=== PATIENT | female | born 1970 | race Two or more races ===

== ENCOUNTER 2020-01-11 20:51 | Inpatient (IN) | payer MEDICAID ==
[~2020-01-11] VITALS: Ht 142.2 cm; Wt 71.4 kg
--- NOTE | 2020-01-11 21:10 | NUR ---
ASSUMED CARE OF PT AT THIS TIME FROM [facility]. PT REQUESTS RESTROOM, AMBULATED WITH STEADY GAIT AND ASSISTANCE FOR CLEAN CATCH UA AND BM. CLEAN CATCH UA COLLECTED AND SENT TO LAB. PT PASSED MODERATE AMOUNT OF STOOL WITH BRIGHT RED BLOOD NOTED, DR. SARKAR IN RESTROOM TO ASSESS. PT ASSISTED TO BED. MD AT BEDSIDE FOR EVALUATION. ADULT SON TRANSLATING PER PT REQUEST. PER SON "SHE HAS BEEN HAVING BLOOD IN HER STOOLS FOR A FEW MONTHS NOW OR WHEN SHE WIPED, DOCTOR SAID SHE HAS HEMORRHOIDS BUT THEN TODAY SHE HAS PASSED 5 TIMES A LOT OF BLOOD IN THE TOILET." DENIES DIZZINESS, CP, SOB, ABD PAIN, RECTAL PAIN, N/V/D. ASSESSMENT COMPLETED. CONT PULSE OX,BP, CARDIAC MONITORS APPLIED. VSS. CALL LIGHT IN REACH. FALL PRECAUTIONS IN PLACE. SON AT BEDSIDE. A&XO4.
[2020-01-11 21:35] LABS: BASOPHILS # (AUTO) 0.06 x10^3/uL (0-0.1); BASOPHILS % (AUTO) 1 % (0-1); EOSINOPHILS # (AUTO) 0.27 x10^3/uL (0-0.4); EOSINOPHILS % (AUTO) 4 % (1-7); LYMPHOCYTES # (AUTO) 1.13 x10^3/uL (1-3.4); LYMPHOCYTES % (AUTO) 17 % (22-44); MD NO; MEAN CORPUSCULAR HEMOGLOBIN 25.3 pg (27.0-34.8); MEAN CORPUSCULAR HGB CONC 30.8 g/dL (32.4-35.8); MEAN CORPUSCULAR VOLUME 82.3 fL (80-100); MEAN PLATELET VOLUME 9.8 fL (7.4-10.4); MONOCYTES # (AUTO) 0.63 x10^3/uL (0.2-0.8); MONOCYTES % (AUTO) 10 % (2-9); NEUTROPHILS # (AUTO) 4.45 x10^3/uL (1.8-6.8); NEUTROPHILS % (AUTO) 68 % (42-75); PLATELET COUNT 248 x10^3/uL (130-400); RED BLOOD COUNT 4.02 x10^6/uL (3.82-5.3)
--- NOTE | 2020-01-11 21:35 | NUR ---
US AT BEDSIDE.
--- NOTE | 2020-01-11 21:40 | NUR ---
VERONICA MEEHAN AT BEDSIDE TO PLACE 2ND PIV PER DR. SARKAR
[2020-01-11 21:44] LABS: MICROSCOPIC AUTO
[2020-01-11] MEDS ORDERED: SODI650T PO (21:44)
[2020-01-11] MEDS ORDERED: FEBU40TA PO (21:44)
[2020-01-11] MEDS ORDERED: FURO80TA3 PO (21:44)
[2020-01-11] MEDS ORDERED: [UNRECOGNIZED DRUG - OTHER] PO (21:44)
[2020-01-11] MEDS ORDERED: CARV3.122 PO (21:44)
[2020-01-11] MEDS ORDERED: OMEP10CA5 PO (21:44)
[2020-01-11] MEDS ORDERED: [UNRECOGNIZED DRUG - CODE] (21:44)
[2020-01-11 21:45] LABS: INTERNATIONAL NORMALIZED RATIO 1.24 (0.93-1.1); PROTHROMBIN TIME 13.2 Seconds (9.6-11.5)
[2020-01-11 21:46] LABS: ALANINE AMINOTRANSFERASE 16 U/L (12-78); ALBUMIN 2.8 g/dL (3.4-5.0); ANION GAP 10 mmol/L (5-15); CHLORIDE 107 mmol/L (98-107); CREATININE 7.11 mg/dL (0.55-1.02)
[2020-01-11 21:48] LABS: ALKALINE PHOSPHATASE 114 U/L (45-117); BILIRUBIN,TOTAL 0.4 mg/dL (0.2-1.0); TOTAL PROTEIN 7.2 g/dL (6.4-8.2)
--- NOTE | 2020-01-11 22:00 | NUR ---
US REMAINS AT BEDSIDE
--- NOTE | 2020-01-11 22:10 | NUR ---
PORTFOLIO SPECIALIST AT BEDSIDE FOR EKG
--- NOTE | 2020-01-11 22:15 | NUR ---
DISCUSSED LABS WITH DR. SARKAR, NO NEW ORDERS RECEIVED AT THIS TIME.
--- NOTE | 2020-01-11 22:43 | NUR ---
PT AMBULATORY TO RESTROOM WITH STEADY GAIT FOR BM. RESTING IN POSITION OF COMFORT. CT CALLED AND NOTIFIED PT READY FOR EXAM. VSS. CALL LIGHT IN REACH. FALL PRECAUTIONS IN PLACE.
--- NOTE | 2020-01-11 22:45 | NUR ---
PT TO CT
--- NOTE | 2020-01-11 22:57 | NUR ---
PT BACK FROM CT, NAD NOTED. SON REMAINS AT BEDSIDE. VSS. SR ON MONITOR. CALL LIGHT IN REACH. FALL PRECAUTIONS IN PLACE. DENIES ANY PAIN
--- NOTE | 2020-01-11 23:10 | NUR ---
PT AMBULATED TO RESTROOM WITH STEADY GAIT AND BACK TO BED, CONTINUES TO PASS BLOODY STOOLS, DISCUSSED WITH DR. SARKAR, AWARE. NO NEW ORDERS RECEIVED. AWAITING RECHECK. RESTING COMFORTABLY. VSS. SR ON MONITOR. DENIES ANY PAIN. FALL PRECAUTIONS IN PLACE. CALL LIGHT IN REACH
--- NOTE | 2020-01-11 23:19 | NUR ---
DR. SARKAR AT BEDSIDE FOR RECHECK, DISCUSSING POC.
[2020-01-11] MEDS: PANTOPRAZOLE 80 MG in SODIUM CHLORIDE 0.9% 100 ML IV SCH (23:30)
[2020-01-11] MEDS ORDERED: PANTOPRAZOLE 80 MG in SODIUM CHLORIDE 0.9% 50 ML IV ONE (23:30)
--- NOTE | 2020-01-11 23:32 | NUR ---
DR. SARKAR REMAINS AT BEDSIDE DISCUSSING POC WITH PT AND PT SON
--- NOTE | 2020-01-11 23:38 | NUR ---
PROTONIX REQUESTED FROM PHARMACY
--- NOTE | 2020-01-11 23:48 | NUR ---
BEDSIDE REPORT AND CARE TO [facility] RN'S AT THIS TIME. ADMITTING PROVIDER AT BEDSIDE FOR EVALUATION
[2020-01-12] MEDS ORDERED: ACETAMINOPHEN 325 MG TABLET PO PRN
[2020-01-12] MEDS ORDERED: ONDANSETRON 2MG/ML, 2ML IVPush PRN
[2020-01-12] MEDS ORDERED: SODIUM CHLORIDE 0.45% 1,000 ML IV SCH
--- NOTE | 2020-01-12 00:01 | NUR ---
RECEIVED REPORT FROM SHEFALI GEE. ADMITTING MD TO BEDSIDE. PT SITTING IN BED, SON AT BEDSIDE. SON TO TRANSLATE, CONFIRMED WITH PT THAT SHE PREFERED SON OVER TRANSLATION SERVICES. VSS, NO SIGNS OF DISTRESS, RESPIRATIONS EVEN AND UNLABORED. BP AND O2 MONITOR IN PLACE. PT UPDATED ON POC.
[2020-01-12 00:21] LABS: CHLORIDE,URINE RANDOM 31 mmol/L; POTASSIUM,URINE RANDOM 8 mmol/L; SODIUM,URINE RANDOM 47 mmol/L
[2020-01-12] MEDS: PANTOPRAZOLE 80 MG in SODIUM CHLORIDE 0.9% 100 ML IV SCH ×4 (00:32→22:37)
--- NOTE | 2020-01-12 00:41 | NUR ---
THIS RN AND SHEFALI GARY BOTH AT BEDSIDE TO SPEAK WITH SON AND PT ABOUT REASON WHY PT DOES NOT WANT TO STAY IN THE HOSPITAL WITHOUT HER SON. ANXIETIES ADDRESSED, LANGUAGE BARRIER ADDRESSED. SON AND PT EDUCATED ABOUT TRANSLATION SERVICES AND THE KIND OF CARE TO EXPECT WHILE ON THE FLOOR, INCLUDING BUT NOT LIMITED TO HOW THE PT WOULD REQUEST TO GO TO THE BATHROOM. PT AND SON EDUCATED THAT IF PT WERE TO LEAVE IT WOULD BE AMA. PT EDUCATED ON RISKS ASSOCIATED WITH THIS. PT AND SON LEFT ALONE TO DISCUSS PLAN.
--- NOTE | 2020-01-12 00:48 | NUR ---
JOSE GRIFFIN(ADMITTING) MADE AWARE OF PT. REQUEST TO LEAVE AMA IF SON IS NOT ABLE TO STAY. JAYLIN ZIMMERMAN CALLED AND ALSO MADE AWARE OF SITUATION. ATTEMPTING TO COME UP WITH PLAN PT. NEEDS MEDICAL TREATMENT. PT. AND SON MADE AWARE OF RISKS OF LEAVING AMA AND CONTINUE TO REPORT THAT IF SON CAN NOT STAY PT. WILL CHOOSE TO LEAVE AMA REGUARDLESS OF RISKS. AWAITING TO HEAR BACK FROM JAYLIN DUPONT ON SITUATION.
--- NOTE | 2020-01-12 01:08 | NUR ---
JOSE GRIFFIN BACK IN TO ROOM TO FURTHER DISCUSS RISKS OF LEAVING AMA UP TO AND INCLUDING . AT THIS TIME FLOOR RN'S WITH SAME LANGUAGE DOWN TO FURTHER SPEAK WITH PT. AND SON IN REGARDS TO IMPORTANCE OF STAYING IN HOSPITAL FOR TREATMENT. HOUSE SUP ALSO DOWN TO SPEAK WITH PT. AND SON.
--- NOTE | 2020-01-12 01:29 | NUR ---
LATE ENTRY FOR 0105: NURSE WHO SPEAKS PROMIES TO BEDSIDE TO TALK WITH PT. PT HAS DECIDED TO STAY.
[2020-01-12] MEDS ORDERED: CARVEDILOL 3.125 MG TABLET ONE (01:50)
[2020-01-12] MEDS ORDERED: FUROSEMIDE 80 MG TABLET ONE (01:51)
[2020-01-12] MEDS ORDERED: SODIUM BICARBONATE 650 MG TABLET ONE (01:51)
[2020-01-12] MEDS: SODIUM BICARBONATE 650 MG TABLET PO SCH ×3 (01:54→20:56)
[2020-01-12] MEDS: CARVEDILOL 3.125 MG TABLET PO SCH ×3 (01:55→20:56)
[2020-01-12] MEDS: FUROSEMIDE 80 MG TABLET PO SCH ×5 (01:55→20:59)
[2020-01-12] MEDS: SODIUM CHLORIDE FLUSH 10ML SYR IVF SCH ×3 (01:55→21:00)
[2020-01-12 01:58] VITALS: BP 110/69
[2020-01-12 04:04] LABS: MEAN CORPUSCULAR HEMOGLOBIN 25.5 pg (27.0-34.8); MEAN CORPUSCULAR HGB CONC 31.1 g/dL (32.4-35.8); MEAN CORPUSCULAR VOLUME 81.9 fL (80-100); MEAN PLATELET VOLUME 9.6 fL (7.4-10.4); PLATELET COUNT 196 x10^3/uL (130-400); RED BLOOD COUNT 3.27 x10^6/uL (3.82-5.3); RED CELL DISTRIBUTION WIDTH 16.9 % (9.6-15.2)
[2020-01-12 04:19] LABS: ANION GAP 11 mmol/L (5-15); CALCIUM 7.8 mg/dL (8.5-10.1); CHLORIDE 112 mmol/L (98-107); CREATININE 6.93 mg/dL (0.55-1.02)
[2020-01-12 04:42] LABS: BASOPHILS # (AUTO) 0.08 x10^3/uL (0-0.1); BASOPHILS % (AUTO) 1 % (0-1); EOSINOPHILS # (AUTO) 0.12 x10^3/uL (0-0.4); EOSINOPHILS % (AUTO) 2 % (1-7); LYMPHOCYTES # (AUTO) 1.16 x10^3/uL (1-3.4); LYMPHOCYTES % (AUTO) 20 % (22-44); MD SCAN; MONOCYTES # (AUTO) 0.43 x10^3/uL (0.2-0.8); MONOCYTES % (AUTO) 7 % (2-9); NEUTROPHILS # (AUTO) 3.99 x10^3/uL (1.8-6.8); NEUTROPHILS % (AUTO) 69 % (42-75)
[2020-01-12 06:56] VITALS: BP 108/71
[2020-01-12] MEDS: CYANOCOBALAMIN 1,000 MCG TABLET PO SCH (10:54)
[2020-01-12 10:55] VITALS: BP 109/69
[2020-01-12] MEDS: LEVOTHYROXINE 25 MCG TABLET PO SCH (10:55)
[2020-01-12 13:38] VITALS: BP 110/69
[2020-01-12] MEDS ORDERED: GOLYTELY 4,000ML ORAL.SOL PO ONE (18:00)
[2020-01-12 20:53] VITALS: BP 104/66
[2020-01-12] MEDS: MOVIPREP POWDER 1 PREP KIT PO SCH (20:57)
[2020-01-13 00:11] VITALS: BP 105/66
[2020-01-13] MEDS: MOVIPREP POWDER 1 PREP KIT PO SCH (06:13)
[2020-01-13 08:30] VITALS: BP 113/72
[2020-01-13] MEDS: LEVOTHYROXINE 25 MCG TABLET PO SCH (08:35)
[2020-01-13] MEDS: SODIUM BICARBONATE 650 MG TABLET PO SCH ×2 (08:35→20:57)
[2020-01-13] MEDS: FUROSEMIDE 80 MG TABLET PO SCH ×4 (08:36→21:02)
[2020-01-13] MEDS: CYANOCOBALAMIN 1,000 MCG TABLET PO SCH (08:36)
[2020-01-13] MEDS: SODIUM CHLORIDE FLUSH 10ML SYR IVF SCH ×3 (08:42→21:00)
[2020-01-13] MEDS: CARVEDILOL 3.125 MG TABLET PO SCH ×2 (08:42→20:57)
[2020-01-13] MEDS: PANTOPRAZOLE 80 MG in SODIUM CHLORIDE 0.9% 100 ML IV SCH (09:59)
[2020-01-13 10:02] LABS: BASOPHILS # (AUTO) 0.02 x10^3/uL (0-0.1); BASOPHILS % (AUTO) 1 % (0-1); EOSINOPHILS # (AUTO) 0.18 x10^3/uL (0-0.4); EOSINOPHILS % (AUTO) 4 % (1-7); LYMPHOCYTES % (AUTO) 18 % (22-44); MD NO; MEAN CORPUSCULAR HEMOGLOBIN 25.4 pg (27.0-34.8); MEAN CORPUSCULAR HGB CONC 30.3 g/dL (32.4-35.8); MEAN CORPUSCULAR VOLUME 83.7 fL (80-100); MEAN PLATELET VOLUME 9.3 fL (7.4-10.4); MONOCYTES # (AUTO) 0.29 x10^3/uL (0.2-0.8); MONOCYTES % (AUTO) 7 % (2-9); NEUTROPHILS # (AUTO) 3.12 x10^3/uL (1.8-6.8); NEUTROPHILS % (AUTO) 71 % (42-75); PLATELET COUNT 209 x10^3/uL (130-400); RED BLOOD COUNT 3.48 x10^6/uL (3.82-5.3); RED CELL DISTRIBUTION WIDTH 16.7 % (9.6-15.2)
[2020-01-13 10:04] LABS: ANION GAP 15 mmol/L (5-15); CALCIUM 8.3 mg/dL (8.5-10.1); CHLORIDE 116 mmol/L (98-107); CREATININE 7.34 mg/dL (0.55-1.02)
[2020-01-13] MEDS ORDERED: CHLORHEXIDINE 15 ML UDC ONE (11:44)
[2020-01-13] MEDS ORDERED: OXYcodone 5 MG/5 ML ORAL.SOL UDC PO PRN (12:00)
[2020-01-13] MEDS ORDERED: CHLORHEXIDINE 15 ML UDC MM ONE (12:00)
[2020-01-13] MEDS ORDERED: MIDAZOLAM 1 MG/ML, 2ML IV PRN (12:00)
[2020-01-13] MEDS ORDERED: ONDANSETRON 2MG/ML, 2ML IVPush PRN (12:00)
[2020-01-13] MEDS ORDERED: FENTANYL PF 100 MCG/2ML IV PRN (12:00)
[2020-01-13] MEDS ORDERED: EPHEDRINE 50 MG/ML, 1ML ONE (12:01)
[2020-01-13] MEDS ORDERED: PROPOFOL 10 MG/ML, 50ML ONE (12:01)
[2020-01-13] MEDS ORDERED: PHENYLEPHRINE 10 MG/ML ONE (12:01)
[2020-01-13] MEDS ORDERED: PROPOFOL 10 MG/ML, 20ML ONE (12:01)
[2020-01-13] MEDS ORDERED: SODIUM BICARB 8.4%, 50ML SYRINGE IVPush SCH (13:00)
[2020-01-13] MEDS ORDERED: DEXTROSE 50%, 50ML SYRINGE IVPush PRN (13:30)
[2020-01-13] MEDS ORDERED: SODIUM POLYSTYRENE SULFONATE ORAL SUSP PO ONE (13:30)
[2020-01-13] MEDS ORDERED: DEXTROSE 4 GM TAB.CHEW PO PRN (13:30)
[2020-01-13] MEDS ORDERED: GLUCAGON 1 MG IM PRN (13:30)
[2020-01-13 13:45] VITALS: BP 111/73
[2020-01-13 19:16] LABS: ANION GAP 14 mmol/L (5-15); CALCIUM 8.2 mg/dL (8.5-10.1); CHLORIDE 114 mmol/L (98-107); CREATININE 7.33 mg/dL (0.55-1.02)
[2020-01-13 20:11] VITALS: BP 112/73
[2020-01-13] MEDS ORDERED: SODIUM BICARBONATE 650 MG TABLET PO SCH (21:00)
[2020-01-14] MEDS: PANTOPRAZOLE 80 MG in SODIUM CHLORIDE 0.9% 100 ML IV SCH ×2 (00:13→08:31)
[2020-01-14 01:25] VITALS: BP 91/48
[2020-01-14 05:02] LABS: BASOPHILS # (AUTO) 0.02 x10^3/uL (0-0.1); BASOPHILS % (AUTO) 0 % (0-1); EOSINOPHILS # (AUTO) 0.25 x10^3/uL (0-0.4); EOSINOPHILS % (AUTO) 3 % (1-7); LYMPHOCYTES # (AUTO) 1.16 x10^3/uL (1-3.4); LYMPHOCYTES % (AUTO) 16 % (22-44); MD NO; MEAN CORPUSCULAR HEMOGLOBIN 25.5 pg (27.0-34.8); MEAN CORPUSCULAR HGB CONC 31.1 g/dL (32.4-35.8); MEAN PLATELET VOLUME 9.6 fL (7.4-10.4); MONOCYTES % (AUTO) 8 % (2-9); NEUTROPHILS # (AUTO) 5.29 x10^3/uL (1.8-6.8); NEUTROPHILS % (AUTO) 72 % (42-75); PLATELET COUNT 225 x10^3/uL (130-400); RED BLOOD COUNT 3.09 x10^6/uL (3.82-5.3); RED CELL DISTRIBUTION WIDTH 16.3 % (9.6-15.2)
[2020-01-14 07:40] VITALS: BP 118/71
[2020-01-14] MEDS: SODIUM BICARBONATE 650 MG TABLET PO SCH (08:31)
[2020-01-14] MEDS: SODIUM CHLORIDE FLUSH 10ML SYR IVF SCH ×2 (08:32)
[2020-01-14] MEDS: CARVEDILOL 3.125 MG TABLET PO SCH (08:32)
[2020-01-14] MEDS: FUROSEMIDE 80 MG TABLET PO SCH (08:32)
[2020-01-14] MEDS: CYANOCOBALAMIN 1,000 MCG TABLET PO SCH (08:32)
[2020-01-14] MEDS: LEVOTHYROXINE 25 MCG TABLET PO SCH (08:32)
[2020-01-14] MEDS ORDERED: PHYTONADIONE 5 MG TABLET PO ONE (12:30)
[2020-01-14 12:56] VITALS: BP 103/65
== END 2020-01-14 14:54 | disposition home or self-care (01) | DRG 377 ==
LOC: ED 22:23 → EDIP 23:38 → 4EST 01-12 01:45 → DCLOUNGE 01-14 14:48
PROVIDERS: ADMIT Family Medicine; ATTEND Family Medicine
PROC: 0DBL8ZX Excision of Transverse Colon, Via Natural or Artificial Opening Endoscopic, Diagnostic (ICD-10-PCS; 2020-01-13)
PROC: 0DBN8ZX Excision of Sigmoid Colon, Via Natural or Artificial Opening Endoscopic, Diagnostic (ICD-10-PCS; 2020-01-13)
PROC: 0DBM8ZX Excision of Descending Colon, Via Natural or Artificial Opening Endoscopic, Diagnostic (ICD-10-PCS; 2020-01-13)
PROC: 0DBK8ZX Excision of Ascending Colon, Via Natural or Artificial Opening Endoscopic, Diagnostic (ICD-10-PCS; principal; 2020-01-13 11:30)
DX: K57.33 Diverticulitis of large intestine without perforation or abscess with bleeding (principal); N18.6 End stage renal disease; E87.2 Acidosis; I12.0 Hypertensive chronic kidney disease with stage 5 chronic kidney disease or end stage renal disease; K63.5 Polyp of colon; K21.9 Gastro-esophageal reflux disease without esophagitis; D50.0 Iron deficiency anemia secondary to blood loss (chronic); E03.9 Hypothyroidism, unspecified; E53.8 Deficiency of other specified B group vitamins; E87.5 Hyperkalemia; D49.59 Neoplasm of unspecified behavior of other genitourinary organ; H57.02 Anisocoria; Z87.11 Personal history of peptic ulcer disease; Z90.49 Acquired absence of other specified parts of digestive tract; Z20.828 Contact with and (suspected) exposure to other viral communicable diseases
CPT/HCPCS: 36415; 74176; 80048; 80053; 81001; 82436; 82570; 82962; 83690; 84133; 84300; 85014; 85018; 85025; 85610; 85730; 86304; 86850; 86900; 87635; 88305; 93005; 93970; G0378; J2704; C9113; J2370